=== PATIENT | male | born 1940 | race Caucasian/White ===

== ENCOUNTER 2023-03-19 10:44 | Outpatient (RCR) | payer OTHER, SELFPAY ==
[2023-02-20 13:08] LABS: Glucose - Point of Care 180 mg/dl (70-99)
[2023-02-20 13:47] LABS: Glucose - Point of Care 147 mg/dl (70-99)
[2023-02-26 10:56] LABS: Glucose - Point of Care 201 mg/dl (70-99)
[2023-02-26 11:36] LABS: Glucose - Point of Care 191 mg/dl (70-99)
[2023-03-02 11:15] LABS: Glucose - Point of Care 153 mg/dl (70-99)
[2023-03-02 11:58] LABS: Glucose - Point of Care 136 mg/dl (70-99)
[2023-03-05 11:21] LABS: Glucose - Point of Care 165 mg/dl (70-99)
[2023-03-05 12:07] LABS: Glucose - Point of Care 170 mg/dl (70-99)
[2023-03-07 11:01] LABS: Glucose - Point of Care 246 mg/dl (70-99)
[2023-03-07 11:49] LABS: Glucose - Point of Care 195 mg/dl (70-99)
[2023-03-12 11:03] LABS: Glucose - Point of Care 220 mg/dl (70-99)
[2023-03-12 11:53] LABS: Glucose - Point of Care 191 mg/dl (70-99)
[2023-03-14 10:59] LABS: Glucose - Point of Care 238 mg/dl (70-99)
== END 2023-03-19 23:59 | disposition home or self-care (01) ==
LOC: CRHB 10:44
PROVIDERS: ATTENDING PHYSICIAN Internal Medicine Interventional Cardiology
DX: I25.10 Atherosclerotic heart disease of native coronary artery without angina pectoris (principal); Z95.4 Presence of other heart-valve replacement
CPT/HCPCS: 82962; G0422; G0423

== ENCOUNTER 2023-04-18 11:24 | Outpatient (RCR) | payer OTHER, SELFPAY | END 2023-04-18 23:59 | disposition home or self-care (01) | LOC: CRHB 11:24 | PROVIDERS: ATTENDING PHYSICIAN Internal Medicine Interventional Cardiology | DX: I25.10 Atherosclerotic heart disease of native coronary artery without angina pectoris (principal); Z95.4 Presence of other heart-valve replacement | CPT/HCPCS: G0422; G0423 ==

== ENCOUNTER 2023-05-16 11:26 | Outpatient (RCR) | payer OTHER, SELFPAY | END 2023-05-16 23:59 | disposition home or self-care (01) | LOC: CRHB 11:26 | PROVIDERS: ATTENDING PHYSICIAN Internal Medicine Interventional Cardiology | DX: I25.10 Atherosclerotic heart disease of native coronary artery without angina pectoris; Z95.4 Presence of other heart-valve replacement | CPT/HCPCS: G0422; G0423 ==

== ENCOUNTER 2023-08-21 13:20 | Inpatient (IN) | payer OTHER, SELFPAY ==
[2023-08-21] VITALS (9 sets, daily range): BP systolic 111–178; BP diastolic 41–67; BMI 21.8
--- NOTE | 2023-08-21 10:20 | ED.GENMED ---
History of Present Illness
<Lin Ortiz PA-C - Last Filed: 08/21/23 18:35>
General
Chief Complaint: Musculo-Skeletal Complaint
Source: patient
Exam Limitations: none
Time Seen by Provider: 08/21/23 09:50
Nursing documentation reviewed up to this point in time: agreed with
History of Present Illness
History of Present Illness:
Patient is an 83-year-old male presenting for evaluation following [place] He states that he was walking out of the post office when he lost his footing and fell landing on his left side. Patient
states that he was unable to get up without assistance. He has been having significant pain in his left hip with weightbearing since. Patient states that he went home and was hoping that the pain was on tomorrow bone he woke up today he still was
unable to bear weight on his left leg so he came to the emergency department for evaluation. Patient has been taking Tylenol to reduce pain.
Patient did not hit his head or lose consciousness. Patient denies sustaining any other injuries in the fall. Patient denies any chest pain, shortness of breath. Patient does take Eliquis.
Past History
<Lin Ortiz PA-C - Last Filed: 08/21/23 18:35>
Past History
ED Past Medical History: Arrthythmia (atrial fibrillation), HTN, Hypercholesterolemia and Other (History of arthritis, valve disorder)
ED Past Surgical History: None
Social History
Tobacco: Non-smoker
Alcohol: None
Drug: None
Personal:
Living: with family
Employment: Retired
Family History
Family History: Other (Noncontributory)
Review of Systems
<Lin Ortiz PA-C - Last Filed: 08/21/23 18:35>
Review of Systems
Allergies reviewed?: Yes
All Other Systems: ROS reviewed and negative except as documented in HPI and ROS
Phy Exam
<Lin Ortiz PA-C - Last Filed: 08/21/23 18:35>
Physical Exam
Physical Exam:
Vitals: Patient's vital signs are stable. Afebrile
General: Patient is well appearing, no acute distress. Nontoxic-appearing
Skin: Warm and dry, no rashes or lesions
Head: Normocephalic, atraumatic
Eyes: Sclera nonicteric. EOMs intact. No nystagmus.
Throat: Protecting airway
Neck: Normal ROM, no cervical spine tenderness, no meningismus. No midline spinal tenderness
Cardiac: Regular rate and rhythm, no murmurs.
Pulm: Normal respiratory effort, no wheezes, rales, rhonchi heard on exam. No ecchymoses noted over bilateral anterior/posterior ribs
Abdomen: Abdomen soft. No abdominal tenderness.
Extremities: Left lower extremity with slight external rotation. Tenderness palpation over left greater trochanter. Pain with past internal/external rotation of left hip. Right lower extremity and bilateral upper extremities atraumatic and
nontender with full active range of motion. DP pulse palpable on the RLE. Left lower extremity DP pulse on Doppler. No evidence of cyanosis or edema.
Neuro: AAOx3. CN II-XII intact. No focal neurologic deficits. Speech fluid.
Psychiatric: Normal affect.
Course
<Lin Ortiz PA-C - Last Filed: 08/21/23 18:35>
Orders/Labs/Results
Orders:
Orders
08/21/23 10:20
Hip, Left 2-3 Views [CR Hip - LT w/wo Pel 2-3 Vw*] Urgent
Comment:
Reason For Exam: fall, left weight bearing hip pain
Include a pelvis x-ray?: Yes
08/21/23 11:08
Electrocardiogram (*1) Urgent
Reason for Study: PreOp
EKG- Treatment ONCE
08/21/23 11:39
Type+Screen Urgent
Complete Blood Count/With Diff Urgent
Comprehensive Metabolic Panel Urgent
PTT Urgent
Prothrombin Time Urgent
08/21/23 12:45
CT Pelvis W/o Iv Contrast Urgent
Comment:
Reason For Exam: communited left proximal femoral fracture
08/21/23 12:51
Admit/Transfer Patient As Directed
Co-Sign Provider:
Level of Care: Inpatient admission
Assign to:: Telemetry
Physician / Group: shruti
Diagnosis: left femoral fracture
Reason for Telemetry: Arrhythmia
Date to Stop Telemetry: 08/24/23
Time to Stop Telemetry: 11:00
Reason for Hospitalization: left femoral fracture
Expected length of stay greater than two midnights?: Yes
ELOS- Estimated Length of Stay in days: 3
I certify the patient meets the requirements for IP care: Yes
08/21/23 12:53
Code Status As Directed
Resuscitation Status: Full Code
08/21/23 13:15
0.9% Sodium Chloride 1000 ml [Nss] 1,000 ml IV 80 mls/hr
08/21/23 13:51
ORTHOPEDIC CONSULT Routine
Consulting Provider: Semaj Salcedo
Was physician already notified: Yes
08/21/23 15:03
Acetaminophen with Codeine [Tylenol #3] 1 tablet PO BIDPRN PRN
Dextrose 50%-Water [Dextrose 50% Syringe] 12.5 grams IV [id number] PRN
Gabapentin [Neurontin] 300 mg PO HSPRN PRN
Glucagon [GlucaGen] 1 mg IM PRN PRN
HYDROmorphone [Dilaudid] 1 mg IV Q4HPRN PRN
Magnesium Hydroxide [Milk of Magnesia] 30 ml PO DAILYPRN PRN
Tamsulosin [Flomax] 0.4 mg PO DAILYPRN PRN
08/21/23 15:03
Activity As Directed
Activity Level: Bedrest
Bedside Glucose Monitoring As Directed
Frequency: AC&HS
Additional Instructions:: Change to q6h if pt on TPN, tube feeding or not eating
Bladder Scan As Directed
Follow Bladder Retention/Intermittent Cath Algorithm?: Yes
PRN if no void in __ hours: 6
Comment: if not voiding 6 hrs upon arrival to floor, bladder scan & follow algorithm
Intake/ Output As Directed
Frequency: Per unit guidelines
Pneumatic Compression Sleeves As Directed
Type: Thigh high
Straight Cath As Directed
Frequency: Per Retention Algorithm
Additional Instructions: straight cath as needed per acute urinary retention algorithm for 24 hrs
Additional Instructions: for bladder scan greater than 400 mL
Vital Signs As Directed
Frequency: Per unit guidelines
Ot Eval And Treat Routine
DX Deep Vein Thrombosis Video Routine
08/21/23 16:00
Acetaminophen [Tylenol] 650 mg PO Q4HWA
08/21/23 16:30
Insulin Aspart Corrective Low [Novolog Flexpen-Low Resistance] See Protocol SC AC
08/21/23 18:00
Atorvastatin [Lipitor] 80 mg PO QPM
08/21/23 20:00
Docusate Sodium [Colace] 100 mg PO BID
Sennosides [Senokot] 17.2 mg PO BID
08/22/23 06:00
Glycohemoglobin (HgbA1c) IN AM
08/22/23 08:00
Cholecalciferol (Vitamin D3) [VITAMIN D3 (cholecalciferol)] 50 mcg PO DAILY
08/24/23 11:00
DC Protocol for Telemetry ONCE
Abnormal Lab Results
08/21/23
11:39
WBC 11.3 H 10^3/uL
(4.8-10.8)
RBC 3.25 L 10^6/uL
(4.70-6.10)
Hgb 9.6 L g/dL
(13.0-18.0)
Hct 28.1 L %
(39.0-52.0)
RDW 15.1 H %
(11.5-14.5)
MPV 11.2 H fL
(7.4-10.4)
Absolute Neuts (auto) 8.5 H 10^3/uL
(1.4-6.5)
Absolute Monos (auto) 1.2 H 10^3/uL
(0.1-0.6)
Lymphocytes % 12.8 L %
(20.5-51.1)
Monocytes % 10.7 H %
(1.7-9.3)
PT 18.6 H Sec
(11.4-14.6)
APTT 44.5 H Sec
(23.4-35.0)
Glucose 134 H mg/dl
(70-99)
Total Bilirubin 1.5 H mg/dl
(0.2-1.3)
Total Protein 5.8 L g/dl
(6.3-8.2)
08/21/23 11:39
08/21/23 11:39
Vital Signs
Initial and Last Documented VS:
Initial Vital Signs
Temp Pulse Resp BP Pulse Ox
97.9 F 71 16 134/59 97
08/21/23 09:40 08/21/23 09:40 08/21/23 09:40 08/21/23 09:40 08/21/23 09:40
Last Documented Vital Signs
Temp Pulse Resp BP Pulse Ox
98.3 F 45 16 168/59 98
08/21/23 15:25 08/21/23 15:25 08/21/23 15:25 08/21/23 18:23 08/21/23 15:48
<Jose G Garcia, DO - Last Filed: 08/21/23 11:51>
Orders/Labs/Results
Orders:
Orders
08/21/23 10:20
Hip, Left 2-3 Views [CR Hip - LT w/wo Pel 2-3 Vw*] Urgent
Comment:
Reason For Exam: fall, left weight bearing hip pain
Include a pelvis x-ray?: Yes
08/21/23 11:08
Electrocardiogram (*1) Urgent
Reason for Study: PreOp
EKG- Treatment ONCE
08/21/23 11:39
Type+Screen Urgent
Complete Blood Count/With Diff Urgent
Comprehensive Metabolic Panel Urgent
PTT Urgent
Prothrombin Time Urgent
08/21/23 12:45
CT Pelvis W/o Iv Contrast Urgent
Comment:
Reason For Exam: communited left proximal femoral fracture
08/21/23 12:51
Admit/Transfer Patient As Directed
Co-Sign Provider:
Level of Care: Inpatient admission
Assign to:: Telemetry
Physician / Group: shruti
Diagnosis: left femoral fracture
Reason for Telemetry: Arrhythmia
Date to Stop Telemetry: 08/24/23
Time to Stop Telemetry: 11:00
Reason for Hospitalization: left femoral fracture
Expected length of stay greater than two midnights?: Yes
ELOS- Estimated Length of Stay in days: 3
I certify the patient meets the requirements for IP care: Yes
08/21/23 12:53
Code Status As Directed
Resuscitation Status: Full Code
08/21/23 13:15
0.9% Sodium Chloride 1000 ml [Nss] 1,000 ml IV 80 mls/hr
08/21/23 13:51
ORTHOPEDIC CONSULT Routine
Consulting Provider: Semaj Salcedo
Was physician already notified: Yes
08/21/23 15:03
Acetaminophen with Codeine [Tylenol #3] 1 tablet PO BIDPRN PRN
Dextrose 50%-Water [Dextrose 50% Syringe] 12.5 grams IV [id number] PRN
Gabapentin [Neurontin] 300 mg PO HSPRN PRN
Glucagon [GlucaGen] 1 mg IM PRN PRN
HYDROmorphone [Dilaudid] 1 mg IV Q4HPRN PRN
Magnesium Hydroxide [Milk of Magnesia] 30 ml PO DAILYPRN PRN
Tamsulosin [Flomax] 0.4 mg PO DAILYPRN PRN
08/21/23 15:03
Activity As Directed
Activity Level: Bedrest
Bedside Glucose Monitoring As Directed
Frequency: AC&HS
Additional Instructions:: Change to q6h if pt on TPN, tube feeding or not eating
Bladder Scan As Directed
Follow Bladder Retention/Intermittent Cath Algorithm?: Yes
PRN if no void in __ hours: 6
Comment: if not voiding 6 hrs upon arrival to floor, bladder scan & follow algorithm
Intake/ Output As Directed
Frequency: Per unit guidelines
Pneumatic Compression Sleeves As Directed
Type: Thigh high
Straight Cath As Directed
Frequency: Per Retention Algorithm
Additional Instructions: straight cath as needed per acute urinary retention algorithm for 24 hrs
Additional Instructions: for bladder scan greater than 400 mL
Vital Signs As Directed
Frequency: Per unit guidelines
Ot Eval And Treat Routine
DX Deep Vein Thrombosis Video Routine
08/21/23 16:00
Acetaminophen [Tylenol] 650 mg PO Q4HWA
08/21/23 16:30
Insulin Aspart Corrective Low [Novolog Flexpen-Low Resistance] See Protocol SC AC
08/21/23 18:00
Atorvastatin [Lipitor] 80 mg PO QPM
08/21/23 20:00
Docusate Sodium [Colace] 100 mg PO BID
Sennosides [Senokot] 17.2 mg PO BID
08/22/23 06:00
Glycohemoglobin (HgbA1c) IN AM
08/22/23 08:00
Cholecalciferol (Vitamin D3) [VITAMIN D3 (cholecalciferol)] 50 mcg PO DAILY
08/24/23 11:00
DC Protocol for Telemetry ONCE
Abnormal Lab Results
08/21/23
11:39
WBC 11.3 H 10^3/uL
(4.8-10.8)
RBC 3.25 L 10^6/uL
(4.70-6.10)
Hgb 9.6 L g/dL
(13.0-18.0)
Hct 28.1 L %
(39.0-52.0)
RDW 15.1 H %
(11.5-14.5)
MPV 11.2 H fL
(7.4-10.4)
Absolute Neuts (auto) 8.5 H 10^3/uL
(1.4-6.5)
Absolute Monos (auto) 1.2 H 10^3/uL
(0.1-0.6)
Lymphocytes % 12.8 L %
(20.5-51.1)
Monocytes % 10.7 H %
(1.7-9.3)
PT 18.6 H Sec
(11.4-14.6)
APTT 44.5 H Sec
(23.4-35.0)
Glucose 134 H mg/dl
(70-99)
Total Bilirubin 1.5 H mg/dl
(0.2-1.3)
Total Protein 5.8 L g/dl
(6.3-8.2)
08/21/23 11:39
08/21/23 11:39
Vital Signs
Initial and Last Documented VS:
Initial Vital Signs
Temp Pulse Resp BP Pulse Ox
97.9 F 71 16 134/59 97
08/21/23 09:40 08/21/23 09:40 08/21/23 09:40 08/21/23 09:40 08/21/23 09:40
Last Documented Vital Signs
Temp Pulse Resp BP Pulse Ox
98.3 F 45 16 168/59 98
08/21/23 15:25 08/21/23 15:25 08/21/23 15:25 08/21/23 18:23 08/21/23 15:48
<Lin Ortiz PA-C - Last Filed: 08/21/23 18:35>
MDM/Problems Addressed
Differential Diagnosis Includes:
Limited to: Pelvic fracture, hip fracture, contusion, sprain
MDM/Problems Addressed:
83-year-old male presenting following mechanical fall yesterday with left hip pain, unable to weight-bear. Fall was not associated with head strike or any other sustained injuries. Vital signs are stable. Physical exam as above. Left lower
extremity with slight external rotation and tenderness to palpation of left hip. Pain in left hip with both internal/external rotation. No evidence of head trauma or any other traumatic injuries. Patient declines any pain medication. X-ray
performed of left hip shows a moderately comminuted acute proximal left femoral fracture surrounding prosthetic left hip. Did discuss with orthopedics, Dr. Salcedo who recommends CT of lower extremity. Will admit to hospitalist for further
management-may require surgical revision based on CT findings. Will check basic labs, EKG, type and screen. Labs noted. Mild leukocytosis which is likely reactive and anemia, likely chronic noted. No active bleeding. No other clinically
significant abnormalities.
Patient accepted to hospitalist service. Orthopedics will consult for possible surgical revision versus PT eval and likely rehab placement.
Chronic conditions affecting care:
N/A
Acute Exacerbation and/or Progression of Chronic Illness:
N/A
<Lin Ortiz PA-C - Last Filed: 08/21/23 18:35>
*Radiology
Radiology exam reviewed: preliminary read by ED provider and radiology read reviewed
*Pulse Oximetry
Patient hypoxic: no
*EKG
Interpreted by ED Provider?: NA
*Operations Executive Interpretation
Rate: Operations Executive- N/A
*Critical Care Note
Total Time (30-74mins, 75-104mins- exclusive of procedures): Not Applicable
<Lin Ortiz PA-C - Last Filed: 08/21/23 18:35>
Patient Management
Discussion with other providers: Frame Repairer
Escalation/DeEscalation of care consider admission/obs:
Admit further management and possible orthopedic surgical revision
ED Attending Note
<Lin Ortiz PA-C - Last Filed: 08/21/23 18:35>
-
Portions of this chart may have been created with voice recognition software.� Occasional wrong word or��sound alike� substitutions may have occurred due to the inherent limitations of voice recognition software.
<Jose G Garcia DO - Last Filed: 08/21/23 11:51>
ED Attending Note
Patient seen and examined by attending physician: Yes
I performed a history and physical exam of patient and discussed management with resident, I reviewed resident's note and agree with documented findings and plan of care.: Yes
ED Attending Note:
I have reviewed and agree with history and treatment plan by Lin Ortiz. My exam revealed tenderness palpation left hip. X-ray consistent with periprosthetic fracture. Will plan to admit with orthopedic consult with orthopedic consult
Matias, likely requiring revision surgery.
Discharge Plan
Departure
Patient Disposition: Admit
Date of Disposition: 08/21/23
Time of Disposition: 12:11
Presentation/result/management discussed w/ accepting MD/DO: Hospitalist
Discharge Problem:
Fracture of proximal end of left femur
Interventions
Interventions:
*Risk Screen - Suicide Last Done: 08/21/23 15:14
*General Assessment Last Done: 08/21/23 09:40
*Neglect/Abuse Screening Last Done: 08/21/23 10:00
*ED COVID-19 Vaccine History Last Done: 08/21/23 15:14
*Nursing Disposition Last Done: 08/21/23 14:51
ED-Musculoskeletal Assessment Last Done: 08/21/23 10:47
Discharge Date and Time
Discharge Date/Time: 08/21/23 14:51
[2023-08-21 11:47] LABS: % Basophils 0.5 % (0-2); % Eosinophils 0.4 % (0-6); % Immature Granulocytes 0.4 % (0-0.5); % Lymphocytes 12.8 % (20.5-51.1); % Monocytes 10.7 % (1.7-9.3); % Neutrophils 75.2 % (42.2-75.2); Absolute Basophils 0.1 10^3/uL (0-0.2); Absolute Eosinophils 0.1 10^3/uL (0-0.7); Absolute Lymphocytes 1.5 10^3/uL (1.2-3.4); Absolute Monocytes 1.2 10^3/uL (0.1-0.6); Absolute Neutrophils 8.5 10^3/uL (1.4-6.5); Hematocrit 28.1 % (39.0-52.0); Hemoglobin 9.6 g/dL (13.0-18.0); Mean Corp Hgb Conc. 34.2 g/dL (33.0-37.0); Mean Corpuscular Hgb 29.5 pg (27.0-31.0); Mean Corpuscular Volume 86.5 fL (80.0-94.0); Mean Platelet Volume 11.2 fL (7.4-10.4); Nucleated Red Blood Cells % 0 % (-); Platelet Count 167 10^3/uL (130-400); Red Blood Cell Count 3.25 10^6/uL (4.70-6.10); Red Cell Dist. Width 15.1 % (11.5-14.5); White Blood Cell Count 11.3 10^3/uL (4.8-10.8)
[2023-08-21 11:58] LABS: APTT 44.5 Sec (23.4-35.0); INR 1.57; PT 18.6 Sec (11.4-14.6)
[2023-08-21 12:01] LABS: ALT (SGPT) 15 U/L (0-50); AST (SGOT) 26 U/L (17-59); Albumin 3.7 g/dl (3.5-5.0); Alkaline Phosphatase 63 U/L (38-126); Blood Urea Nitrogen 16 mg/dl (9-20); Carbon Dioxide 27 mmol/L (22-30); Chloride 106 mmol/L (98-107); Estimated Creatinine Clearance 66 ml/min; Glucose 134 mg/dl (70-99); Potassium 3.6 mmol/L (3.5-5.1); Sodium 138 mmol/L (135-145); Total Bilirubin 1.5 mg/dl (0.2-1.3); Total Protein 5.8 g/dl (6.3-8.2); eGFR > 60.00
--- NOTE | 2023-08-21 12:27 | HPS.HSE ---
Addendum entered and electronically signed by Malachi Kevin MD 08/21/23 14:05:
I saw and examined the patient.
The IT SYSTEMS ENGINEER or PA's note was reviewed and I agree with the note.
Comment: 83-year-old male with history of TAVR, permanent atrial fibrillation on Eliquis, hypertension, hyperlipidemia came to the hospital after a fall with left femoral fracture. CT scan pending. Orthopedics consulted. Pending CT orthopedics
will decide will be operative versus nonoperative management. Hold Eliquis for now. If operative management then will need cardiology evaluation for restratification given TAVR. If nonoperative management then will need orthopedics evaluation for
weightbearing status. Gentle hydration. N.p.o. for now. Last Eliquis dose this morning. Pain control. Discussed with at bedside
General: Well Developed, Well Nourished and No Apparent Distress
HEENT: NormoCephalic, Moist mucous membranes and Atraumatic
Respiratory: Clear
Cardiac: S1/S2 and Regular Rhythm; No Murmur or Rub
GI: Soft, Non Tender, Non Distended and Normal Bowel Sounds; No Organomegaly
Rectal: Deferred by Provider
Musculoskeletal: No Clubbing, No Cyanosis and No Edema
Skin: No Rash
Neuro: AO x 3 and Nonfocal/grossly intact
Psych: Calm
I spent a total of 77 minutes with the patient or on the floor. More than 50% of this time involved counseling and coordination of care.
Original Note:
Family Physician
-
Family Physician: Grant Mace DO
Chief Complaint
-
right LE pain
History of Present Illness
83-year-old male medical history for A-fib, hypertension, hyperlipidemia, arthritis presenting for evaluation following [place] He states that he was walking out of the post office when he lost his
footing and fell landing on his left side. Patient states that he was unable to get up without assistance. He has been having significant pain in his left hip with weightbearing since. Patient states that he went home and was hoping that the pain
was on tomorrow bone he woke up today he still was unable to bear weight on his left leg so he came to the emergency department for evaluation. Patient did not hit his head or lose consciousness. At present patient denied any headache, dizziness,
syncopal episode. Patient denied fever, chills, chest pain, short of breath patient denied any abdominal pain, nausea, vomiting, diarrhea.. Patient denied dysuria hematuria.
X-ray with Moderately comminuted acute proximal left femoral fracture as described. No dislocation.
Admitting for further management
Medical History
Past Medical History
Past Medical History: Reports Other
Additional Past Medical History:
A-fib
Hypertension
Arthritis
Hyperlipidemia
colon polyps
2 diabetes
Prostate cancer
Chronic venous insufficiency
Osteoarthritis
Chronic kidney disease
Past Surgical History: Reports Other
Additional Past Surgical History:
Radical prostatectomy
Cataract surgery
Bilateral hernia inguinal repairs
Chest melanoma removed
Left rotator cuff surgery
Basal cell cancer removed from surgery
Left total hip replacement
Social History
Tobacco: Non-smoker
Alcohol: Occasional
Drug: None
Personal:
Living: With Family
Family History
Family History: Not pertinent
Allergies / Home Medications
Allergies reflects when Allergies were last updated in [employer].
Home Medications with original date entered in [employer]
Allergy/Medication List:
Allergies
Allergy/AdvReac Type Severity Reaction Status Date / Time
adhesive tape Allergy Rash Verified 08/21/23 09:46
Home Medications
atorvastatin 80 mg tablet 80 mg PO QPM High cholesterol 03/08/21
amlodipine 10 mg tablet 10 mg PO QPM Blood Pressure 05/11/21
benazepril 40 mg tablet 40 mg PO QPM Blood Pressure ##0 05/11/21
gabapentin 300 mg capsule 300 mg PO HSPRN PRN nerve pains 12/04/22
acetaminophen 300 mg-codeine 30 mg tablet 1 tab PO BIDPRN PRN severe pain 08/21/23
acetaminophen 500 mg tablet (Tylenol Extra Strength) 1,000 mg PO DAILY 08/21/23
apixaban 2.5 mg tablet (Eliquis) 2.5 mg PO BID 08/21/23
cholecalciferol (vitamin D3) 50 mcg (2,000 unit) tablet 50 mcg PO DAILY 08/21/23
fluoride (sodium) 1.1 % dental cream (Denta 5000 Plus) 1 applic dental BID 08/21/23
metformin 750 mg tablet,extended release 24 hr 750 mg PO QPM 08/21/23
Review of Systems
-
Constitutional: Reports No Symptoms
EENT: Reports No Symptoms
Respiratory: Reports No Symptoms
Cardiac: Reports No Symptoms
Abdomen/GI: Reports No Symptoms
: Reports No Symptoms
Musculoskeletal: Reports Other (Left hip pain)
Skin: Reports No Symptoms
Neurological: Reports No Symptoms
Endocrine: Reports No Symptoms
Hematologic/Lymphatic: Reports No Symptoms
Psych: Reports No Symptoms
Physical Exam
Vital Signs
Vital Signs
Temp Pulse Resp BP Pulse Ox
97.9 F 48 16 111/45 98
08/21/23 09:40 08/21/23 12:00 08/21/23 09:40 08/21/23 10:00 08/21/23 11:30
Physical Exam
General: Well Developed, Well Nourished and No Apparent Distress
HEENT: NormoCephalic, Moist mucous membranes and Atraumatic
Respiratory: Clear
Cardiac: S1/S2 and Regular Rhythm; No Murmur or Rub
GI: Soft, Non Tender, Non Distended and Normal Bowel Sounds; No Organomegaly
Rectal: Deferred by Provider
Musculoskeletal: No Clubbing, No Cyanosis and No Edema
Skin: No Rash
Neuro: AO x 3 and Nonfocal/grossly intact
Psych: Calm
Laboratory Results
-
08/21/23 11:39
08/21/23 11:39
Laboratory Results
PT 18.6 Sec (11.4-14.6) H 08/21/23 11:39
INR 1.57 08/21/23 11:39
APTT 44.5 Sec (23.4-35.0) H 08/21/23 11:39
Total Bilirubin 1.5 mg/dl (0.2-1.3) H 08/21/23 11:39
AST 26 U/L (17-59) 08/21/23 11:39
ALT 15 U/L (0-50) 08/21/23 11:39
Alkaline Phosphatase 63 U/L (38-126) 08/21/23 11:39
Data Reviewed
-
Diagnostic Radiology: Report Reviewed by me
Lab Data: Labs Reviewed by me
Impression/Plan
-
#Comminuted proximal left femoral fracture
-Hip x ray with Moderately comminuted acute proximal left femoral fracture as described. No dislocation.
-CT LE, pelvis pending
-orto following patient
#leukocytosis likely stress reaction
-wbc 11.3
-afebrile, ctm
#anemia likely chornic
-hgb 9.6
-no active bleeding
#essential htn
-BP soft in ER
-hold Norvasc
-continue benazepril with hold parameters.
#permanent atrial fib
-hold eliquis
-EKG with atrial fib, right bundle branch block
# Recent TAVR
#HLD
-statin
#neuropathy
-gabapentin continued
#type 2 Dm
-sliding scale
-hold metformin
-CHO diet
#DVT prophylaxis
-scd
#CODE status
-full code
[2023-08-21] MEDS: NSS 1000 IV (13:42)
--- NOTE | 2023-08-21 15:12 | PTCARENOTE ---
Pt arrived to [facility] from ED for L femoral fx. Pt transferred from stretcher to bed. IVF infusing, patient states mild pain at this time. NV L DP pulse present with doppler. Pt and oriented to call portillo and room, bed locked in lowest position,
call portillo within reach.
[2023-08-21 15:59] LABS: Glucose - Point of Care 157 mg/dl (70-99)
[2023-08-21] MEDS: TYLENOL 650 MG PO ×2 (17:12→20:23)
[2023-08-21] MEDS: NOVOLOG FLEXPEN-LOW RESISTANCE 1 UNITS SC (17:12)
[2023-08-21] MEDS: LIPITOR 80 MG PO (17:12)
[2023-08-21] MEDS: ZESTRIL 40 MG PO (17:14)
--- NOTE | 2023-08-21 19:12 | W.PN.UPDATE ---
Update Note
Progress Note Update
Full consult dictated. 83 yo [place]. Was able to make it home with assistance but unable to WB this AM. Prior history of L THR by Dr. Urban 2 1/2 years ago. Radiographs in the ER revealed a slightly comminuted
minimally displaced greater trochanteric fracture with a well fixed femoral stem distally. Patient complains os pain. PE: VSS. Answers questions appropriately. Pulm: nonlabored. LLE: No deformity. Calf soft. Tender over the greater
trochanter without ecchymosis. NVI distally. Xrays and CT scan reviewed and as noted above. Discussed with the patient and his . Plan for nonoperative treatment with mobilization as tolerated. May be toe touch WBAT on the LLE. May require
Rehab. Followup in the office in 3 weeks. Continue anticoagulation.
[2023-08-21] MEDS: ELIQUIS 2.5 MG PO (20:24)
[2023-08-21] MEDS: FLOMAX 0.400000000000000022 MG PO (20:30)
[2023-08-21] MEDS: SENOKOT PO (20:30)
[2023-08-21] MEDS: COLACE PO (20:30)
[2023-08-21 21:27] LABS: Glucose - Point of Care 155 mg/dl (70-99)
--- NOTE | 2023-08-21 22:05 | PTCARENOTE ---
2030 - pt refused straight cath despite education provided. Flomax given per orders. Pt verbalized understanding but asked to sit on toilet to try to void. PVR 42.
[2023-08-22] VITALS (10 sets, daily range): BP systolic 150–185; BP diastolic 55–80; PULSE 54; O2SAT 99
[2023-08-22] MEDS: TYLENOL PO ×2 (01:00→04:17)
--- NOTE | 2023-08-22 06:32 | PTCARENOTE ---
Pt ambulated to toilet to void multiple times, no c/o pain through the night. assessment ongoing.
[2023-08-22 07:57] LABS: Glucose - Point of Care 147 mg/dl (70-99)
[2023-08-22] MEDS: NOVOLOG FLEXPEN-LOW RESISTANCE SC ×2 (08:08→12:01)
[2023-08-22] MEDS: VITAMIN D3 (cholecalciferol) 50 MCG PO (08:11)
[2023-08-22] MEDS: ELIQUIS 2.5 MG PO ×2 (08:11→20:02)
[2023-08-22] MEDS: TYLENOL 650 MG PO ×4 (08:11→20:01)
[2023-08-22] MEDS: COLACE PO (08:13)
[2023-08-22] MEDS: SENOKOT PO ×2 (08:14→20:02)
[2023-08-22 08:50] LABS: % Basophils 0.4 % (0-2); % Eosinophils 0.7 % (0-6); % Immature Granulocytes 0.5 % (0-0.5); % Lymphocytes 12.3 % (20.5-51.1); % Monocytes 8.5 % (1.7-9.3); % Neutrophils 77.6 % (42.2-75.2); Absolute Basophils 0.1 10^3/uL (0-0.2); Absolute Eosinophils 0.1 10^3/uL (0-0.7); Absolute Immature Granulocytes 0.1 10^3/uL (0-0.05); Absolute Lymphocytes 1.4 10^3/uL (1.2-3.4); Absolute Neutrophils 8.8 10^3/uL (1.4-6.5); Hemoglobin 9.5 g/dL (13.0-18.0); Mean Corp Hgb Conc. 33.9 g/dL (33.0-37.0); Mean Corpuscular Hgb 29.3 pg (27.0-31.0); Mean Corpuscular Volume 86.4 fL (80.0-94.0); Mean Platelet Volume 10.9 fL (7.4-10.4); Nucleated Red Blood Cells % 0 % (-); Platelet Count 158 10^3/uL (130-400); Red Blood Cell Count 3.24 10^6/uL (4.70-6.10); Red Cell Dist. Width 14.9 % (11.5-14.5); White Blood Cell Count 11.3 10^3/uL (4.8-10.8)
[2023-08-22 09:05] LABS: ALT (SGPT) 14 U/L (0-50); AST (SGOT) 29 U/L (17-59); Albumin 3.7 g/dl (3.5-5.0); Alkaline Phosphatase 61 U/L (38-126); Blood Urea Nitrogen 10 mg/dl (9-20); Calcium 9.1 mg/dl (8.4-10.2); Carbon Dioxide 28 mmol/L (22-30); Chloride 103 mmol/L (98-107); Estimated Creatinine Clearance 88 ml/min; Glucose 150 mg/dl (70-99); Potassium 3.4 mmol/L (3.5-5.1); Sodium 139 mmol/L (135-145); Total Bilirubin 1.7 mg/dl (0.2-1.3); Total Protein 5.9 g/dl (6.3-8.2); eGFR > 60.00
--- NOTE | 2023-08-22 10:41 | W.PN.HOSP.TC ---
Today's Communication/Plan
-
Monitor vital signs see plan
Pain control
PT/OT
Might need rehab
Nonoperative management per orthopedic
Replete potassium
Assessment / Plan
Assessment / Plan
General: Well Developed, Well Nourished and No Apparent Distress
HEENT: NormoCephalic, Moist mucous membranes and Atraumatic
Respiratory: Clear
Cardiac: S1/S2 and Regular Rhythm; No Murmur or Rub
GI: Soft, Non Tender, Non Distended and Normal Bowel Sounds; No Organomegaly
Rectal: Deferred by Provider
Musculoskeletal: No Clubbing, No Cyanosis and No Edema
Skin: No Rash
Neuro: AO x 3 and Nonfocal/grossly intact
Psych: Calm
Comminuted proximal left femoral fracture 2/2 trauma from fall
-Hip x ray with Moderately comminuted acute proximal left femoral fracture as described. No dislocation.
-CT LE slightly comminuted minimally displaced greater trochanteric fracture with a well fixed femoral stem distally
-orto following patient
Orthopedics following, recommended nonoperative management. Per orthopedics toe-touch weight-bear/tolerated on left lower extremity. PT/OT. May require rehab
Patient will follow-up with orthopedics in 3 weeks
#leukocytosis likely stress reaction
-afebrile, ctm
Hypokalemia
Replete
#anemia likely chronic
-hgb 9.5
-no active bleeding
#essential htn
-Restart Norvasc
-continue benazepril with hold parameters.
#permanent atrial fib
- eliquis; rate controlled
-EKG with atrial fib, right bundle branch block
# Recent TAVR
#HLD
-statin
#neuropathy
-gabapentin continued
#type 2 Dm
-sliding scale
-hold metformin
-CHO diet
#DVT prophylaxis
-eliquis
#CODE status
-full code
Anticipated Discharge: Within 24 hours
Subjective/Interval History
-
Date of Service: August 22, 2023
Denies nausea
Objective Data
-
Labs:
Laboratory Results
08/22/23
08:29
WBC 11.3 H
Hgb 9.5 L
Hct 28.0 L
Plt Count 158
Sodium 139
Potassium 3.4 L
Chloride 103
Carbon Dioxide 28
BUN 10
Creatinine 0.5 L
Glucose 150 H
Calcium 9.1
Total Bilirubin 1.7 H
AST 29
ALT 14
Alkaline Phosphatase 61
Vital Signs:
Vital Signs
Temp Pulse Resp BP Pulse Ox
97.7 F 63 17 167/60 97
08/22/23 08:48 08/22/23 08:48 08/22/23 08:48 08/22/23 08:48 08/22/23 08:48
I&O
08/21/23 08/22/23 08/23/23
06:59 06:59 06:59
Intake Total 900 / 900
Balance 900 / 900
[2023-08-22 11:09] LABS: Glycohemoglobin (HgbA1c) 6.4 % (4.0-5.6)
[2023-08-22] MEDS: APRESOLINE 5 MG IV (11:57)
[2023-08-22] MEDS: KCL 40 MEQ PO (11:58)
[2023-08-22 12:03] LABS: Glucose - Point of Care 148 mg/dl (70-99)
--- NOTE | 2023-08-22 12:54 | CM ---
Addendum entered by Sabina Porter 08/22/23 16:29:
Patient spoke with CM and requesting VN/PT/OT CM reviewed Post acute data and sent referral to [facility] for home health at home. Patient family to go to [place] for 3 weeks at [place] starting sunday with extended family members. CM will
continue to follow for discharge planing needs.
Plan; home with VN; referral to [facility] await response.
Original Note:
Patient seen at bedside with son at bedside. Patient lives with in 2 story. Patient did not use any DME prior to admission. Patient PCP is Dr. Mace and he uses the [facility] on [facility]. Patient plan is SNF vs home with VN. PT recommending
home Health. Patient anticipates going home with VN. CM will review options with patient and re; home health. CM will continue to follow for discharge planning needs.
Plan; home with VN vs SNF
--- NOTE | 2023-08-22 14:32 | PN.CDI ---
CDI
- -
CDI:
Physician Documentation Request
Admit Date: 08/21/23 13:20
Dear Doctor Herberth,
Please review the following and provide your response in the progress notes.
Clinical Indicators:
ED, 08/20
#...[place]
#He states that he was walking out of the post office when he
#...lost his footing and fell landing on his left side.
PN, 08/21
#Comminuted proximal left femoral fracture 2/ trauma from fall
Ortho consult, 08/20
#REASON FOR CONSULTATION: Left periprosthetic hip fracture.
08/20 EXAMINATION: CT pelvis without contrast.
#INDICATION: Left femoral fracture.
#...Bones are diffusely demineralized.
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
Home Meds:
#cholecalciferol (vitamin D3) 50 mcg (2,000 unit) tablet 50 mcg PO DAILY 08/21/23
Please clarify the following regarding the etiology of the left periprosthetic hip fracture:
Multifactorial, due to low level trauma and age related osteoporosis
Traumatic fracture only
Other(please specify)
Type Fracture
Age-related With current pathological fx
Drug induced (specify drug) without current pathological fx
Idiopathic
Osteoporosis of disuse
Due to post surgical malabsorption
Post traumatic
Use of terms such as suspected, likely, concern for, or probable (associated with a specific diagnosis that is being evaluated, monitored, or treated as if it exists) are acceptable and can be coded in the inpatient setting, when documented at the
time of discharge.
Thank you,
Shelby Villagomez RN BSN CCDS
CDI Specialist
please contact via tiger text
Please use your independent medical judgment in providing your response.
[2023-08-22] MEDS: LIPITOR 80 MG PO (17:09)
[2023-08-22] MEDS: ZESTRIL 40 MG PO (17:09)
[2023-08-22] MEDS: NORVASC 10 MG PO (17:13)
[2023-08-22 17:24] LABS: Glucose - Point of Care 229 mg/dl (70-99)
[2023-08-22] MEDS: NOVOLOG FLEXPEN-LOW RESISTANCE 2 UNITS SC (17:25)
[2023-08-22] MEDS: COLACE 100 MG PO (20:02)
[2023-08-22 21:38] LABS: Glucose - Point of Care 153 mg/dl (70-99)
[2023-08-23] MEDS: TYLENOL PO (00:42)
[2023-08-23 03:53] VITALS: BP 140/60
[2023-08-23] MEDS: TYLENOL 650 MG PO ×3 (04:05→11:55)
[2023-08-23 05:26] LABS: % Basophils 0.3 % (0-2); % Eosinophils 0.5 % (0-6); % Immature Granulocytes 0.5 % (0-0.5); % Lymphocytes 10.2 % (20.5-51.1); % Monocytes 9.4 % (1.7-9.3); % Neutrophils 79.1 % (42.2-75.2); Absolute Eosinophils 0.1 10^3/uL (0-0.7); Absolute Immature Granulocytes 0.1 10^3/uL (0-0.05); Absolute Lymphocytes 1.2 10^3/uL (1.2-3.4); Absolute Monocytes 1.1 10^3/uL (0.1-0.6); Absolute Neutrophils 9.5 10^3/uL (1.4-6.5); Hematocrit 29.7 % (39.0-52.0); Hemoglobin 10.1 g/dL (13.0-18.0); Mean Corpuscular Hgb 29.7 pg (27.0-31.0); Mean Corpuscular Volume 87.4 fL (80.0-94.0); Mean Platelet Volume 10.9 fL (7.4-10.4); Nucleated Red Blood Cells % 0 % (-); Platelet Count 182 10^3/uL (130-400); Red Cell Dist. Width 15.1 % (11.5-14.5)
[2023-08-23 05:54] LABS: ALT (SGPT) 17 U/L (0-50); AST (SGOT) 48 U/L (17-59); Alkaline Phosphatase 71 U/L (38-126); Blood Urea Nitrogen 9 mg/dl (9-20); Calcium 9.4 mg/dl (8.4-10.2); Carbon Dioxide 28 mmol/L (22-30); Chloride 102 mmol/L (98-107); Estimated Creatinine Clearance 88 ml/min; Glucose 157 mg/dl (70-99); Potassium 3.6 mmol/L (3.5-5.1); Sodium 138 mmol/L (135-145); Total Protein 6.4 g/dl (6.3-8.2); eGFR > 60.00
[2023-08-23 07:11] VITALS: BP 157/55
[2023-08-23 07:30] LABS: Glucose - Point of Care 147 mg/dl (70-99)
[2023-08-23] MEDS: COLACE 100 MG PO (07:36)
[2023-08-23] MEDS: SENOKOT 17.1999999999999993 MG PO (07:36)
[2023-08-23] MEDS: VITAMIN D3 (cholecalciferol) 50 MCG PO (07:36)
[2023-08-23] MEDS: ELIQUIS 2.5 MG PO (07:36)
[2023-08-23] MEDS: NOVOLOG FLEXPEN-LOW RESISTANCE SC (07:36)
--- NOTE | 2023-08-23 10:15 | W.PN.HOSP.TC ---
Addendum entered and electronically signed by Malachi Kevin MD 08/23/23 14:20:
blood bank manager spoke with spouse multiple times and it appears that no one has answered from [facility]. Spouse still wants patient to be discharged today. She reports she has full support at home. She is aware that we may not be able to set up VN
after she leaves. She does have contact information given by foster care case manager.
Addendum entered and electronically signed by Malachi Kevin MD 08/23/23 10:20:
Traumatic fracture only
Original Note:
Today's Communication/Plan
-
Monitor vital signs and see plan
PT/OT
Discharge home today
Pain control
updated over the phone
Time of discharge 36 minutes
Assessment / Plan
Assessment / Plan
General: Well Developed, Well Nourished and No Apparent Distress
HEENT: NormoCephalic, Moist mucous membranes and Atraumatic
Respiratory: Clear
Cardiac: S1/S2 and Regular Rhythm; No Murmur or Rub
GI: Soft, Non Tender, Non Distended and Normal Bowel Sounds; No Organomegaly
Rectal: Deferred by Provider
Musculoskeletal: No Clubbing, No Cyanosis and No Edema
Skin: No Rash
Neuro: AO x 3 and Nonfocal/grossly intact
Psych: Calm
Comminuted proximal left femoral fracture 2/2 trauma from fall
-Hip x ray with Moderately comminuted acute proximal left femoral fracture as described. No dislocation.
-CT LE slightly comminuted minimally displaced greater trochanteric fracture with a well fixed femoral stem distally
-orto following patient
Orthopedics following, recommended nonoperative management. Per orthopedics toe-touch weight-bear/tolerated on left lower extremity. PT/OT rec home health.
Patient will follow-up with orthopedics in 3 weeks
#leukocytosis likely stress reaction
-afebrile, ctm
Hypokalemia
Replete
#anemia likely chronic
-hgb 9.5
-no active bleeding
#essential htn
-Restart Norvasc
-continue benazepril with hold parameters.
#permanent atrial fib
- eliquis; rate controlled
-EKG with atrial fib, right bundle branch block
# Recent TAVR
#HLD
-statin
#neuropathy
-gabapentin continued
#type 2 Dm
-sliding scale
-hold metformin
-CHO diet
#DVT prophylaxis
-eliquis
#CODE status
-full code
Anticipated Discharge: Today
Subjective/Interval History
-
Date of Service: August 23, 2023
denies pain
Objective Data
-
Labs:
Laboratory Results
08/23/23
04:52
WBC 12.0 H
Hgb 10.1 L
Hct 29.7 L
Plt Count 182
Sodium 138
Potassium 3.6
Chloride 102
Carbon Dioxide 28
BUN 9
Creatinine 0.5 L
Glucose 157 H
Calcium 9.4
Total Bilirubin 2.0 H
AST 48
ALT 17
Alkaline Phosphatase 71
Vital Signs:
Vital Signs
Temp Pulse Resp BP Pulse Ox
97.5 F 61 17 157/55 97
08/23/23 07:11 08/23/23 07:11 08/23/23 07:11 08/23/23 07:11 08/23/23 07:11
I&O
08/22/23 08/23/23 08/24/23
06:59 06:59 06:59
Intake Total 900 / 900 240 / 240
Balance 900 / 900 240 / 240
--- NOTE | 2023-08-23 10:19 | W.DCSUMMARY ---
Discharge Summary
Discharge Data
Date of Admission: 08/21/23
Date of Discharge: 08/23/23
-
Pending Results: No
Hospital Course
83-year-old male with past medical history of anemia, hypertension, pulmonary atrial fibrillation, TAVR, hyperlipidemia, neuropathy, type 2 diabetes mellitus came to the hospital after a fall with comminuted proximal left femoral fracture from fall.
Patient was seen by orthopedics and also had a CT scan which showed minimally displaced greater trochanteric fracture. Orthopedics amended nonoperative management and to have patient follow-up with them in 3 weeks. Patient was seen by physical
therapy and was instructed to do toe-touch weightbearing status on left lower extremity. Patient did well with physical therapy and was instructed to go home. Once patient symptoms continue to improve he was then discharged home with instructions
to follow-up with all his physicians outpatient.
Discharge Plan
-
Patient Disposition: Home with Home Care
Discharge Diagnosis/Procedures: Comminuted proximal left femoral fracture 2/2 trauma from fall
Leukocytosis
Hypokalemia
Diet: As tolerated
Activity: Other activity
Additional Activity: toe-touch weight-bear/tolerated on left lower extremity
Driving Restrictions: Not until seen by your Dr
Bathing Restrictions: None
Blood Work: CBC next week with primary care provider
Referrals:
Semaj Salcedo MD [Active] - in two to three weeks
Grant Mace DO [Family Provider] - in less than 1 week
Prescriptions:
New
docusate sodium 100 mg Capsule
100 mg PO BID Qty: 0 0RF
Continued
atorvastatin 80 MG tablet
80 mg PO QPM
amlodipine 10 MG tablet
10 mg PO QPM
benazepril 40 mg Tablet
40 mg PO QPM Qty: 0
gabapentin 300 mg Capsule
300 mg PO HSPRN PRN (Reason: nerve pains)
acetaminophen-codeine 300-30 mg Tablet
1 tab PO BIDPRN PRN (Reason: severe pain)
acetaminophen [Tylenol Extra Strength] 500 mg Tablet
1,000 mg PO DAILY
metformin 750 mg tablet extended release 24 hr
750 mg PO QPM
fluoride (sodium) [Denta 5000 Plus] 1.1 % Cream
1 applic DENTAL BID
cholecalciferol (vitamin D3) 50 mcg (2,000 unit) Tablet
50 mcg PO DAILY
Eliquis 2.5 mg Tablet
2.5 mg PO BID
Discharge Orders:
Discharge Patient (As Directed); Ordered 08/23/23
Ordered By: Malcahi Kevin
Discharge Date and Time
Discharge Date/Time: 08/23/23 14:37
Print Language: [place]
[2023-08-23 11:39] VITALS: BP 157/54
[2023-08-23 12:06] LABS: Glucose - Point of Care 153 mg/dl (70-99)
[2023-08-23] MEDS: NOVOLOG FLEXPEN-LOW RESISTANCE 1 UNITS SC (12:27)
--- NOTE | 2023-08-23 12:53 | CM ---
Addendum entered by ERIC Gilbert 08/23/23 14:07:
TC to , Alexa. Alexa requesting that patient be discharged today, despite not knowing if [facility] can officially accept. CM to update referral with [place] address ([address] [place] [address]) and 's cell phone number to follow up
tomorrow. confirms that both she and patient have support and help after discharge. MD and RN updated.
Original Note:
Message left for [facility] to confirm if [facility] is accepted. Awaiting call back.
--- NOTE | 2023-08-23 14:21 | PTCARENOTE ---
Discharge instructions given to patient and his . They have decided to leave even though [facility] has not accepted pt and is not set up as of this time. Dr Kevin and PARTH De La Cruz aware and discussed w patient and .
== END 2023-08-23 14:37 | disposition home health service (06) | DRG 536 ==
LOC: 2 SOUTH 13:20
PROVIDERS: Physician Assistant; Registered Nurse; ADMITTING PHYSICIAN Internal Medicine; CONSULT PHYSICIAN Orthopaedic Surgery; EMERGENCY PHYSICIAN Emergency Medicine; FAMILY PHYSICIAN Family Medicine
DX: S72.112A Displaced fracture of greater trochanter of left femur, initial encounter for closed fracture (principal); M97.02XA Periprosthetic fracture around internal prosthetic left hip joint, initial encounter; I48.21 Permanent atrial fibrillation; E78.00 Pure hypercholesterolemia, unspecified; E78.5 Hyperlipidemia, unspecified; M19.90 Unspecified osteoarthritis, unspecified site; E11.40 Type 2 diabetes mellitus with diabetic neuropathy, unspecified; I87.2 Venous insufficiency (chronic) (peripheral); I12.9 Hypertensive chronic kidney disease with stage 1 through stage 4 chronic kidney disease, or unspecified chronic kidney disease; E11.22 Type 2 diabetes mellitus with diabetic chronic kidney disease; E87.6 Hypokalemia; D64.9 Anemia, unspecified; N18.9 Chronic kidney disease, unspecified; D72.829 Elevated white blood cell count, unspecified; I45.10 Unspecified right bundle-branch block; W01.0XXA Fall on same level from slipping, tripping and stumbling without subsequent striking against object, initial encounter; Y93.01 Activity, walking, marching and hiking; Y92.242 Post office as the place of occurrence of the external cause; Z79.01 Long term (current) use of anticoagulants; Z95.2 Presence of prosthetic heart valve; Z86.010 Personal history of colon polyps; Z85.46 Personal history of malignant neoplasm of prostate; Z88.8 Allergy status to other drugs, medicaments and biological substances; Z79.84 Long term (current) use of oral hypoglycemic drugs
CPT/HCPCS: 72192; 73502; 80053; 82962; 83036; 85025; 85610; 85730; 86850; 86900; 86901; 93005; 97162; 97166; 99285

== ENCOUNTER → 2023-10-16 09:56 | Outpatient (REF) | payer OTHER, SELFPAY | LOC: RCS 09:56 | PROVIDERS: ATTENDING PHYSICIAN Internal Medicine Interventional Cardiology; FAMILY PHYSICIAN Family Medicine | DX: I35.0 Nonrheumatic aortic (valve) stenosis (principal) | CPT/HCPCS: 93306 ==

== ENCOUNTER 2023-12-19 12:49 | Outpatient (RCR) | payer OTHER, SELFPAY | END 2023-12-19 23:59 | disposition home or self-care (01) | LOC: RPT 12:49 | PROVIDERS: ATTENDING PHYSICIAN Physician Assistant Surgical | DX: M97.02XS Periprosthetic fracture around internal prosthetic left hip joint, sequela (principal); M47.27 Other spondylosis with radiculopathy, lumbosacral region; R26.2 Difficulty in walking, not elsewhere classified; R26.89 Other abnormalities of gait and mobility; Z73.6 Limitation of activities due to disability | CPT/HCPCS: 97110; 97112; 97116; 97163; 97530 ==

== ENCOUNTER 2024-01-14 13:51 | Outpatient (RCR) | payer OTHER, SELFPAY | END 2024-01-14 23:59 | disposition home or self-care (01) | LOC: RPT 13:51 | PROVIDERS: ATTENDING PHYSICIAN Physician Assistant Surgical | DX: M97.02XS Periprosthetic fracture around internal prosthetic left hip joint, sequela (principal); M47.27 Other spondylosis with radiculopathy, lumbosacral region; R26.2 Difficulty in walking, not elsewhere classified; R26.89 Other abnormalities of gait and mobility; Z73.6 Limitation of activities due to disability | CPT/HCPCS: 97110; 97112; 97116; 97530 ==

== ENCOUNTER 2024-02-19 13:57 | Outpatient (RCR) | payer OTHER, SELFPAY | END 2024-02-19 23:59 | disposition home or self-care (01) | LOC: RPT 13:57 | PROVIDERS: ATTENDING PHYSICIAN Physician Assistant Surgical | DX: M97.02XD Periprosthetic fracture around internal prosthetic left hip joint, subsequent encounter (principal); M97.02XS Periprosthetic fracture around internal prosthetic left hip joint, sequela (principal); M47.27 Other spondylosis with radiculopathy, lumbosacral region; R26.2 Difficulty in walking, not elsewhere classified; R26.89 Other abnormalities of gait and mobility; Z73.6 Limitation of activities due to disability | CPT/HCPCS: 97110; 97112; 97116; 97530 ==

== ENCOUNTER 2024-03-18 12:45 | Outpatient (RCR) | payer OTHER, SELFPAY | END 2024-03-18 14:29 | disposition home or self-care (01) | LOC: RPT 12:45 | PROVIDERS: ATTENDING PHYSICIAN Physician Assistant Surgical | DX: M97.02XS Periprosthetic fracture around internal prosthetic left hip joint, sequela (principal); M47.27 Other spondylosis with radiculopathy, lumbosacral region; R26.2 Difficulty in walking, not elsewhere classified; R26.89 Other abnormalities of gait and mobility; Z73.6 Limitation of activities due to disability; M97.02XD Periprosthetic fracture around internal prosthetic left hip joint, subsequent encounter | CPT/HCPCS: 97110 ==

== ENCOUNTER → 2024-10-28 09:49 | Outpatient (REF) | payer OTHER, SELFPAY | LOC: RCS 09:49 | PROVIDERS: ATTENDING PHYSICIAN Internal Medicine Interventional Cardiology; FAMILY PHYSICIAN Family Medicine | DX: I35.0 Nonrheumatic aortic (valve) stenosis (principal) | CPT/HCPCS: 93306 ==